=== PATIENT | male | born 1945 | race African-American/Black ===

== ENCOUNTER 2019-02-26 06:10 | Day surgery (SDC) | payer MEDICARE, OTHER ==
[2019-02-22 09:59] LABS: BASOPHILS % (AUTO) 3.8 % (0.0-2.0); EOSINOPHILS % (AUTO) 5.7 % (0.0-3.0); HEMATOCRIT 48.1 % (42.0-52.0); HEMOGLOBIN 16.5 G/DL (14.2-18.0); MEAN CORPUSCULAR VOLUME 86 FL (80-99); MONOCYTES % (AUTO) 12.7 % (1.0-10.0); NEUTROPHILS % (AUTO) 64.7 % (45.0-75.0); PLATELET COUNT 188 K/UL (150-450); RED BLOOD COUNT 5.57 M/UL (4.70-6.10)
[2019-02-22 10:17] LABS: ANION GAP 7 mmol/L (5-15); BLOOD UREA NITROGEN 13 mg/dL (7-18); CALCIUM 8.9 MG/DL (8.5-10.1); CARBON DIOXIDE 27 MMOL/L (21-32); CHLORIDE 103 MMOL/L (98-107); CREATININE 1.3 MG/DL (0.55-1.30); POTASSIUM 3.9 MMOL/L (3.5-5.1); SODIUM 137 MMOL/L (136-145)
--- NOTE | 2019-02-22 16:43 | Opthalmology H&P ---
Ophthalmology H&P H&P Chief Complaint: decreased vision in right eye, decreased vision in left eye, decreased vision in both eyes HPI Vision Affects Ability to: read, focus/use eyes together, manage personal affairs Past Ocular History: glaucoma HPI Narrative Blurry Vision Exam Visual Acuity: OD counting fingers OS hand motion Eye Exam: normal OU: external exam, palpebral fissure-width, marginal reflex distance, levator function, corneas, anterior chambers; findings: lens, fundus exam - Poor View OU Assessment/Plan Treatment Plan: cataract extraction w/ lens implant Goals of Treatment: improvement of vision, enhance quality of life Attestation Attestation The risks and benefits of the surgery as well as alternative procedures were explained to the patient in detail. Tha Segovia MD February 22, 2019 16:43
--- NOTE | 2019-02-22 16:45 | Pre-Procedure Note/Attestation ---
Pre-Procedure Note/Attestation Complete Prior to Procedure Planned Procedure: left Procedure Narrative: Cataract Extraction With Intraocular Lens Left Eye Indications for Procedure Pre-Operative Diagnosis: Nuclear Sclerotic Cataract Left Eye Attestation I attest that I discussed the nature of the procedure; its benefits; risks and complications; and alternatives (and the risks and benefits of such alternatives ), prior to the procedure, with the patient (or the patient's legal traffic representative). I attest that, if there was a reasonable possibility of needing a blood transfusion, the patient (or the patient's legal traffic representative) was given the [facility] standardized written summary, pursuant to the Kt Marc Blood Safety Act ([place] Health and Safety Code # 1645, as amended). I attest that I re-evaluated the patient just prior to the surgery and that there has been no change in the patient's H&P, except as documented below: Tha Segovia MD February 22, 2019 16:45
--- NOTE | 2019-02-22 17:39 | Cardiology Report ---
APPROVED REPORT EKG Measurement Heart [id number] Normal sinus rhythm Normal ECG
--- NOTE | 2019-02-22 18:00 | Pre-op HX & Phy Repo 2 SIG ---
DATE OF ADMISSION: 02/26/2019 PRESURGICAL INTERNAL MEDICINE HISTORY AND PHYSICAL DATE OF EVALUATION: February 22, 2019. REASON FOR EVALUATION: I was asked by Dr. Tha Segovia to see this 73-year-old male, who is going for elective surgery on the left eye on February 26, 2019. The patient has nuclear sclerotic cataract, left eye. Please see full Ophthalmology History and Physical by Dr. Tha Segovia. The patient was evaluated. Chart was reviewed at [facility]. PAST MEDICAL HISTORY/REVIEW OF SYSTEMS: Denies history of heart attack, chest pain, or palpitation. No history of respiratory problem. No diabetes. Denies history of stroke or seizures. No history of GI bleeding, heartburn, vomiting, or weight loss. No renal failure. The patient has frequent voiding problem, prostatitis. No history of anemia. No thyroid problem. PAST SURGICAL HISTORY: Denies history of surgery. Fracture of the wrist at young age. FAMILY HISTORY: Parents , cause unknown. ALLERGIES: Not known. PRESENT MEDICATIONS: Aleve, Advil. SOCIAL HISTORY: The patient smokes approximately 7 cigarettes a day for the last 50 years. Denies alcohol or street drug use. PHYSICAL EXAMINATION: VITAL SIGNS: Blood pressure 170/84, temperature 97.9, pulse is 68 and regular, respiratory rate 20, and O2 saturation 97% on room air. GENERAL: The patient has glaucoma and cataract. SKIN: Clear and warm. No rashes. No open wounds. LYMPHATICS: Lymph nodes not enlarged. HEENT: Ears, no discharge. Eyes, full description per Dr. Tha Segovia. Mouth, clear and moist. No dentures. Head normocephalic, atraumatic. NECK: Supple. No jugular venous distention. Carotids artery +2. Trachea midline. CHEST: No deformity or asymmetry. LUNGS: Clear to auscultation and percussion. No rales or rhonchi. HEART: Sinus rhythm. No ectopy. No murmur, S3, S4. ABDOMEN: Soft, benign. Liver and spleen not enlarged. No rebound. EXTREMITIES: Degenerative joint disease of knee, left. GENITOURINARY TRACT: CVA nontender. Frequent voiding problem. Benign prostatic hypertrophy. NERVOUS SYSTEM: No tremor. No nystagmus. LABORATORY DATA: White blood cells 4.0, hemoglobin 16.5, hematocrit 48.1. Chemistry, sodium 137, potassium 3.9, BUN 13, creatinine 1.3, blood sugar 99, calcium 8.9. ECG, normal sinus rhythm at 69, normal ECG. IMPRESSION: 1. Cataract, left eye. 2. Hypertension, untreated. 3. Degenerative joint disease of knee. PLAN: Cataract extraction, left eye, per Dr. Tha Segovia on February 26, 2019. NPO. CONCLUSION: The patient is a 73-year-old male who is going for cataract of left eye surgery. The patient has glaucoma, degenerative joint disease, and untreated hypertension. The patient also probably has benign prostatic hypertrophy. Recommendation to see primary care physician for treatment of hypertension and urologist for BPH. The patient's condition optimized for surgery. Thank you very much, Dr. Segovia, for privilege to participate in presurgical care of this interesting patient. Venessa Victor M.D. DR: LUCA JOB#: [id number] CC:
[~2019-02-26] VITALS: Ht 200.7 cm; Wt 87.1 kg
[2019-02-26] VITALS (11 sets, daily range): BP systolic 123–182; BP diastolic 59–88
[2019-02-26] MEDS: Tropicamide 1% Opth 15ml Soln LEFT EYE SCH ×3 (06:51→07:12)
[2019-02-26] MEDS: Cyclopentolate 1% Opth Sol 2ml LEFT EYE SCH ×3 (06:51→07:12)
[2019-02-26] MEDS: Phenylephrine 10% Opth Soln 5ml LEFT EYE SCH ×3 (06:52→07:12)
[2019-02-26] MEDS: Tobramycin Op Soln 0.3% 5ml LEFT EYE SCH ×3 (06:52→07:12)
[2019-02-26] MEDS ORDERED: Akten 3.5% 1ml Btl LEFT EYE ONE (07:00)
[2019-02-26] MEDS ORDERED: Dexamethasone 4mg/ml vial ONE (07:00)
[2019-02-26] MEDS ORDERED: Maxitrol Opth Oint 3.5gm ONE (07:00)
[2019-02-26] MEDS ORDERED: Pred Forte 1% Opth Susp 1ml ONE (07:00)
[2019-02-26] MEDS ORDERED: Proparacaine 0.5% Opth Soln 15ml LEFT EYE ONE (07:00)
[2019-02-26] MEDS ORDERED: Pilocarpine 1% Opth 15ml Soln ONE (07:00)
[2019-02-26] MEDS ORDERED: Diclofenac Sod 0.1% Op Soln LEFT EYE SCH (07:00)
[2019-02-26] MEDS ORDERED: Tetracaine 0.5% Opth 4ml Soln LEFT EYE ONE (07:00)
[2019-02-26] MEDS ORDERED: EPINEPHrine 1mg/1ml Amp ONE (07:06)
[2019-02-26] MEDS ORDERED: BSS 500ml btl ONE (07:07)
[2019-02-26] MEDS ORDERED: acetaZOLAMIDE 500mg Inj ONE (07:07)
[2019-02-26] MEDS ORDERED: Lidocaine 4% Amp ONE (07:07)
[2019-02-26] MEDS ORDERED: Carbachol 0.01% Op Soln 1.5ml vial ONE (07:07)
[2019-02-26] MEDS ORDERED: Lidocaine 2% MPF 5ml Vial INJ ONE (07:07)
[2019-02-26] MEDS ORDERED: Povidone-Iodine 5% opth solution ONE (07:08)
[2019-02-26] MEDS ORDERED: Sodium Hyaluronate 14 mg/ml 0.85ml ONE (07:08)
[2019-02-26] MEDS ORDERED: Bupivacaine 0.75% 30ml vial INJ ONE (07:08)
[2019-02-26] MEDS ORDERED: BSS 15ml BTL ONE (07:08)
[2019-02-26] MEDS ORDERED: fentaNYL 100 mcg/2 mL IV PRN (07:15)
[2019-02-26] MEDS ORDERED: NKM (07:19)
[2019-02-26] MEDS ORDERED: Midazolam 2mg/2ml Inj ONE (07:27)
[2019-02-26] MEDS ORDERED: fentaNYL 100 mcg/2 mL IV ONE (07:27)
--- NOTE | 2019-02-26 07:58 | Anethesia Preoperative Eval ---
Anesthesia Pre-op PMH/ROS General Date of Evaluation: February 26, 2019 Time of Evaluation: 07:30 Anesthesiologist: cachorro ASA Score: ASA 2 Mallampati Score Class I : Soft palate, uvula, fauces, pillars visible Class II: Soft palate, uvula, fauces visible Class III: Soft palate, base of uvula visible Class IV: Only hard plate visible Mallampati Classification: Class II Surgeon: jojo Diagnosis: nuclear sclerotic cataract Surgical Procedure: cataract removal Anesthesia History: none Family History: no anesthesia problems Allergies: Coded Allergies: No Known Allergies (Unverified , 02/22/19) Medications: see eMAR Patient NPO?: Yes NPO Date: February 26, 2019 NPO Time: 00:01 Past Medical History Cardiovascular: Reports: HTN Pulmonary: Denies: asthma, COPD, SALUD, other Gastrointestinal/Genitourinary: Denies: GERD, CRI, ESRD, other Neurologic/Psychiatric: Denies: dementia, CVA, depression/anxiety, TIA, other Endocrine: Denies: DM, hypothyroidism, steroids, other HEENT: Reports: cataract (L) Hematology/Immune: Denies: anemia, DVT, bleeding disorder, other Musculoskeletal/Integumentary: Denies: OA, RA, DJD, DDD, edema, other PSxH Narrative: arm fx repair Anesthesia Pre-op Phys. Exam Physician Exam Last Vital Signs Date Time Temp Pulse Resp B/P (MAP) Pulse Ox O2 Delivery O2 Flow Rate FiO2 02/26/19 06:59 Room Air 02/26/19 06:57 97.7 64 20 162/80 97 Constitutional: NAD Neurologic: CN 2-12 intact Cardiovascular: RRR Respiratory: CTA Gastrointestinal: S/NT/ND Airway Exam Mallampati Classification 2 Mallampati Score: Class II MO: full ROM: full Dentures: upper, lower Anesthesia Pre-op A/P Studies Pre-op Studies: EKG - NSR Risk Assessment & Plan Plan: MAC Pre-Antibiotics Drug: none Sandra Dunham CRNA February 26, 2019 07:58
[2019-02-26] MEDS ORDERED: acetaZOLAMIDE 500mg Sequel ORAL ONE (08:41)
[2019-02-26] MEDS ORDERED: acetaZOLAMIDE 500mg Sequel ORAL SCH (08:45)
--- NOTE | 2019-02-26 09:25 | Immediate Post-Op Evaluation ---
Immediate Post-Op Evalulation Immediate Post-Op Evalulation Procedure: left eye cataract removal with IOL Date of Evaluation: February 26, 2019 Time of Evaluation: 08:25 IV Fluids: 0 Blood Pressure Systolic: 124 Blood Pressure Diastolic: 70 Pulse Rate: 64 Respiratory Rate: 14 O2 Sat by Pulse Oximetry: 99 Pain Score (1-10): 0 Nausea: No Vomiting: No Complications none Patient Status: awake, reacts, patent Hydration Status: adequate Drug: none Sandra Dunham CRNA February 26, 2019 09:25
--- NOTE | 2019-02-26 10:30 | 48 Hour Post Anesthesia Eval ---
Post Anesthesia Evaluation Procedure: left eye cataract removal with IOL Date of Evaluation: February 26, 2019 Time of Evaluation: 10:30 Blood Pressure Systolic: 140 0: 88 Pulse Rate: 70 O2 Sat by Pulse Oximetry: 98 Airway: patent Nausea: No Vomiting: No Hydration Status: adequate Cardiopulmonary Status: stable Mental Status/LOC: patient returned to baseline Follow-up Care/Observations: na Post-Anesthesia Complications: none Follow-up care needed: N/A Sandra Dunham CRNA February 26, 2019 10:30
--- NOTE | 2019-02-28 12:11 | Brief Operative Note ---
Immediate Post Operative Note Operative Note Chief Complaint: Low Vison left eye Pre-op Diagnosis: Mature Dense Cataract Left Eye Procedure: Cataract Extraction With IOL Implant left eye Post-op Diagnosis: Pseudo OS Post-op Diagnosis: same as pre-op Surgeon: Tha Segovia MD Anesthesiologist: Sandra Dunham CRNA Anesthesia: MAC Specimen: none Complications: none Condition: stable Fluids: LR Estimated Blood Loss: none Drains: none Implant(s) used?: Yes Tha Segovia MD February 28, 2019 12:11
--- NOTE | 2019-02-28 12:23 | Operative Note - PDOC ---
Operative Note Operative Note Date of Operation/Procedure: February 26, 2019 Chief Complaint: Low Vison left eye Pre-op Diagnosis: Mature Dense Cataract Left Eye Procedure: Cataract Extraction With IOL Implant left eye Post-op Diagnosis: Pseudo OS Post-op Diagnosis: same as pre-op Surgeon: Tha Segovia MD Anesthesiologist: Sandra Dunham CRNA Anesthesia: MAC Specimen: none Complications: none Condition: stable Fluids: LR Estimated Blood Loss: none Drains: none Implant(s) used?: Yes Indications for Procedure Mature Dense Cataract Left Eye Description of Procedure This patient has been complaining visually significant of a mature dense cataract in the left eye with the best corrected visual acuity of hand motion and worse at times. The patient complains of difficulties performing activities of simple daily living and wants to manage personal affairs with comfort and accuracy and see well enough to move with safety at home and outdoors. The risks, benefits and alternatives of the procedure were discussed with the patient in the office prior to scheduling surgery. All questions from the patient were answered after the surgical procedure was explained in detail. The risks of the procedure as explained to the patient include, but are not limited to, pain, infection, bleeding, loss of vision, retinal detachment, need for further surgery, loss of lens nucleus, double vision, etc. Alternative procedures were discussed which include, to do nothing or seek a second opinion. Informed consent for this procedure was obtained from the patient. The patient was referred to a primary care physician for a cardiopulmonary clearance prior to surgery, after proper evaluation was done patient was properly scheduled for outpatient surgery. The patient was brought to the operating room where the anesthesiologist established I.V. lines and cardiac monitoring leads. Mild intravenous sedation was administered. The patient was then prepared with a 5% solution of povidone -iodine to the conjunctival fornix and lashes, and a 5% solution of povidone- iodine to the lids and periorbital skin. The patient was then draped in the usual sterile fashion. A lid speculum was then placed in the operative eye. A keratome blade was then used to create a biplanar incision into the anterior chamber. Viscoelastics was then instilled into the anterior chamber. A curvilinear capsulorrhexis was then fashioned with an utrata forceps. A BSS was used with G-27 cannula was used to hydrodissect and hydrodelineate the lens nucleus. Paracentesis incision was made at 9 o'clock with sharp blade. The phacoemulsification unit, after being properly adjusted and tested, was then used to emulsify the lens nucleus and residual cortical material was aspirated with the irrigation and aspiration unit. Vioscoelastic n was then instilled into the anterior chamber. The corneal wound was then enlarged to the size of the optic with the marion keratome blade. The intraocular lens was then inspected for right power and size and thought to be satisfactory. Then the lens was gently placed in the capsular bag. Positioning within the capsular bag was confirmed by direct visualization. Optic centration was accomplished with a Sinskey hook. Viscoelastics was removed from the anterior chamber using the irrigation and aspiration unit. The corneal wound was then tested for leaks and none were found. The lid speculum were then removed. Sponge and needle counts were correct. An eye patch and shield were placed over the operative eye. The patient was taken to the recovery room in stable condition. There were no complications. The patient tolerated the procedure well. The patient was then transferred to the ambulatory surgery unit in stable and satisfactory condition , was given detailed written instructions and asked to follow up in the office the next day. Tha Segovia MD February 28, 2019 12:22
== END 2019-02-26 09:50 | disposition home or self-care (01) ==
LOC: SUR 06:10
DX: H25.12 Age-related nuclear cataract, left eye (principal); I10 Essential (primary) hypertension; M17.10 Unilateral primary osteoarthritis, unspecified knee; Z79.1 Long term (current) use of non-steroidal anti-inflammatories (NSAID)
CPT/HCPCS: 36415; 66984; 80048; 85025; 93005; J0171; J0360; J1100; J2250; J3010; J3370; V2632; 94003; 94150